=== PATIENT | male | born 1985 | race Two or more races ===

== ENCOUNTER → 2017-11-03 | Emergency (ER) | payer OTHER ==
[~2017-11-03] VITALS: Ht 165.1 cm; Wt 81.6 kg
[~2017-11-03] MED LIST: CLONAZEPAM0.5 MG
== END | disposition home or self-care (01) ==
LOC: ER 07:16 → CPU-OBS 07:34 → ER 07:34
DX: R07.89 Other chest pain (principal)
CPT/HCPCS: G0379; 93005

== ENCOUNTER 2018-02-23 11:47 | Emergency (ER) | payer OTHER ==
[~2018-02-23] VITALS: Ht 165.1 cm; Wt 83.9 kg
== END 2018-02-23 15:12 | disposition home or self-care (01) ==
LOC: ER 11:47
DX: R00.2 Palpitations (principal)